=== PATIENT | female | born 1985 | race Caucasian/White ===

== ENCOUNTER 2016-11-22 20:19 | Emergency (ER) | payer OTHER ==
--- NOTE | 2016-11-22 23:17 | ED CLINICAL REPORT ---
Clinical Report - Physicians/Mid Levels [facility] [address] [place] [address] 11/22/2016 20:21 Patient: SALAS ARECHIGA Time Seen: 21:08. Arrived- By ambulance. Historian- patient and EMS personnel. HISTORY OF PRESENT ILLNESS Chief Complaint: LOWER EXTREMITY SWELLING. Severity is described as being moderate. It has become recently worse. Is still present (Pt in by EMS states that she has had numbness and tingling in R leg for a few weeks that has been getting gradually worse, with a limp .). Symptoms located in the area of the right knee. The patient has not had redness. No swelling. She has had mild difficulty walking. REVIEW OF SYSTEMS No chills, fever, sweats, calf pain or chest pain. No cough, difficulty breathing, pedal edema, palpitations or abdominal pain. No constipation, diarrhea, nausea, vomiting or urinary problems. The patient has had a mild frontal headache. She has had new onset of numbness, (Now c/o tigling on rt side of face onset at 1730 today. pt also has a slight headache "between my eyes")). All systems otherwise negative, except as recorded above. SOCIAL HISTORY Never smoker. Occasional alcohol use. No drug use. FAMILY HISTORY Denies family medical history. ADDITIONAL NOTES The nursing notes have been reviewed. PHYSICAL EXAM Vital Signs: 11/22/2016 20:20 BP: 109/72. HR: 86. RR: 18. O2 saturation: 100%. Temp: 98.2 F. Appearance: Alert. Eyes: Pupils equal, round and reactive to light. ENT: Pharynx normal. Neck: Normal inspection. Neck supple. CVS: Normal heart rate and rhythm. Heart sounds normal. Respiratory: No respiratory distress. Breath sounds normal. Abdomen: Soft and nontender. No organomegaly. Back: Normal inspection. Skin: Skin warm and dry. Normal skin color. Normal skin turgor. Extremities: Right knee: mild tenderness located in the patella and posterior knee. Neurovascular intact distally. (positive patellar apprehension sign). No ligamentous laxity present. No joint effusion. Lower extremities exhibit normal ROM. No signs of infection involving the lower extremities. No lower extremity edema. No calf tenderness. LABS, X-RAYS, AND EKG X-Rays: Right knee negative. The X-rays were independently viewed by me. PROGRESS AND PROCEDURES Patient/family counseled. Old medical records reviewed. Disposition: Discharged. Condition: stable. CLINICAL IMPRESSION Acute right knee pain. Paresthesia Patellofemoral syndrome of the right knee. INSTRUCTIONS Apply ice for 20 minutes four times a day until better. Don't apply ice directly to skin and don't use while asleep. Warnings: Further evaluation is necessary. GENERAL WARNINGS: Return or contact your physician immediately if your condition worsens or changes unexpectedly, if not improving as expected, or if other problems arise. Prescription Medications: Ibuprofen 600mg tablets: take 1 tablet orally every 8 hours as needed for pain. Dispense thirty (30). No refills. Follow-up: Follow up with your doctor in seven days. Call for an appointment. Follow up with an orthopedic surgeon- as recommended by your primary care physician. Understanding of the discharge instructions verbalized by patient. (Electronically signed by All Garcia MD 11/25/2016 0:32)
--- NOTE | 2016-11-22 23:17 | ED NURSING NOTES ---
Clinical Report - Nurses [facility] [address] [place] [address] 11/22/2016 20:21 Patient: SALAS ARECHIGA TRIAGE Triage time 2019. Acuity: LEVEL 3. Chief Complaint: (Pt in by EMS states that she has had numbenss and tingling in rt leg for a few weeks that has been getting gradually worse, with a limp . Now c/o tigling on rt side of face onset at 1730 today. pt also has a slight headache "between my eyes"). 20:20. JOE COMA SCORE: [place] Coma Scale: 15- eyes open spontaneously (4); best verbal response- oriented x 4 (5); best motor response- obeys commands (6). --20:31 Lorrie Farrell R.N. 20:20 11/22/16. BP: 109/72. HR: 86. RR: 18. O2 saturation: 100%. Temp: 98.2 F. Pain level now 3/10. --20:31 Lorrie Farrell R.N. Weight: 54.4 kg stated. Height/Length: 65 inches Per Patient. BMI: 20. --20:28 Lorrie Farrell R.N. Medications None. --20:26 Lorrie Farrell R.N. Allergies Benadryl.(hives) (hallucinations) Celexa. (hallucinations ) Paxil. (hallucinations) --20:26 Lorrie Farrell R.N. History Arrived by EMS. Historian: patient. Unaccompanied. No primary care physician. ( speech is clear, pt is A&Ox4, studio manager are equal, no arm drift noted,). PAST MEDICAL HX: Last normal menstrual period- today. SOCIAL HX: Never smoker. Occasional alcohol use. No drug use. --20:31 Lorrie Farrell R.N. PROBLEMS: Exercise-induced asthma. Depression. Irregular heart beat . Dysfunctional Uterine Bleeding. Dysmenorrhea. OB History. Ovarian Cyst. --20:28 Lorrie Farrell R.N. ADDITIONAL SURGERIES: Dental Surgery. --20:28 Lorrie Farrell R.N. Interventions ID band on patient. To treatment room. --20:31 Lorrie Farrell R.N. PHYSICAL ASSESSMENT 20:20. To room via stretcher. Patient gowned. GENERAL / NEURO / PSYCH: Awake. Oriented X 4. Alert. Speech normal. No sensory deficit. HEENT: No facial asymmetry noted. RESPIRATORY: Respirations not labored. CVS: Capillary refill less than 2 seconds. SKIN: ( pt also c/o pain to rt kneecap area, states it had been in the calf for the last 2 weeks and moved to the kneecap last 2 days -). --20:33 Lorrie Farrell R.N. NURSING PROGRESS NOTES 20:20. Monitoring of patient in place. Patient gowned. Head of bed elevated. Reassurance given. Patient identifiers checked. Call light placed in reach. Side rails up. Bed placed in lowest position. Patient ready for evaluation- chart flagged. --20:31 Lorrie Farrell R.N. 20:51 11/22/16. BP: 102/66. HR: 77. RR: 16. O2 saturation: 100%. Temp: deferred. Pain level now: 12/11. Additional comments: placed on residential monitor, NSR noted . --20:53 Lorrie Farrell R.N. Urine test negative. fire control assistant check passed. --21:54 Nile Gerber, ER Carton Making Machinist 22:30 11/22/16. Care transferred and report given (West Vergara, EDRN). --22:30 Lorrie Farrell R.N. DISPOSITION / DISCHARGE 23:25 11/22/16. Condition at departure: stable. The goals identified in the patient's plan of care were met. JOE COMA SCORE: [place] Coma Scale: 15- eyes open spontaneously (4); best verbal response- oriented x 4 (5); best motor response- obeys commands (6). --23:25 Maurilio Stubbs R.N. 23:24 11/22/16. BP: 113/67 (regular adult cuff) taken on the left arm, via an automated monitor, while lying. HR: 71 (normal rate). RR: 14 (regular, unlabored and normal). O2 saturation: 99% on room air. Temp: 98.3 F (oral). Pain level now: 04/12. --23:25 Maurilio Stubbs R.N. Departure time: 5. No learning barriers present. Discharge instructions provided and reviewed with the patient. Reviewed warnings. Reviewed medication(s). Treatments reviewed. Reviewed referrals. Patient verbalized understanding. Written instructions provided in Mauritian. The patient was discharged by the physician. She was discharged home and accompanied by family. She left the Emergency Department ambulatory and via private vehicle. Family member driving. --23:27 West Kunz R.N. Locked/Released at 11/24/2016 14:05 by West Kunz R.N.
--- NOTE | 2016-11-22 23:17 | ED ORDER SUMMARY ---
..... Patient: SALAS ARECHIGA OrderSheet [facility] VisitID: [id number] [address] [place] [address] 31y, F Registration Date/Time: 11/22/2016 ORDER SHEET Weight: 54.4 kg (stated) Allergies: Benadryl, Celexa, Paxil GENERAL ORDERS: POC - Urine hCG (21:25 11/22/2016 Eva BLOOD) (Ack 21:27 DDean R.N.) (22:11 DDean R.N.) Knee 4V Right Urgent (22:39 11/22/2016 Eva BLOOD) (Ack 22:47 [facility] Executive Secretary) MEDICATION ORDERS: IV FLUIDS: ORDER SHEET NOTES: [Electronically signed by West Kunz R.N. (14:05 11/24/2016)] [Electronically signed by All Garcia MD (00:32 11/25/2016)] [Electronically locked/signed by West Kunz R.N. (14:05 11/24/2016)]
--- NOTE | 2016-11-22 23:17 | ED ORDER SUMMARY ---
..... Patient: SALAS ARECHIGA OrderSheet [facility] VisitID: [id number] [address] [place] [address] 31y, F Registration Date/Time: 11/22/2016 ORDER SHEET Weight: 54.4 kg (stated) Allergies: Benadryl, Celexa, Paxil GENERAL ORDERS: POC - Urine hCG (21:25 11/22/2016 Eva BLOOD) (Ack 21:27 DDean R.N.) (22:11 DDean R.N.) Knee 4V Right Urgent (22:39 11/22/2016 Eva BLOOD) (Ack 22:47 [facility] Mud Boss) MEDICATION ORDERS: IV FLUIDS: ORDER SHEET NOTES: [Electronically signed by West Kunz R.N. (14:05 11/24/2016)] [Electronically signed by All Garcia MD (00:32 11/25/2016)] [Electronically locked/signed by West Kunz R.N. (14:05 11/24/2016)]
--- NOTE | 2016-11-22 23:17 | ED NURSING NOTES ---
Clinical Report - Nurses [facility] [address] [place] [address] 11/22/2016 20:21 Patient: SALAS ARECHIGA TRIAGE Triage time 2019. Acuity: LEVEL 3. Chief Complaint: (Pt in by EMS states that she has had numbenss and tingling in rt leg for a few weeks that has been getting gradually worse, with a limp . Now c/o tigling on rt side of face onset at 1730 today. pt also has a slight headache "between my eyes"). 20:20. JOE COMA SCORE: [place] Coma Scale: 15- eyes open spontaneously (4); best verbal response- oriented x 4 (5); best motor response- obeys commands (6). --20:31 Lorrie Farrell R.N. 20:20 11/22/16. BP: 109/72. HR: 86. RR: 18. O2 saturation: 100%. Temp: 98.2 F. Pain level now 3/10. --20:31 Lorrie Farrell R.N. Weight: 54.4 kg stated. Height/Length: 65 inches Per Patient. BMI: 20. --20:28 Lorrie Farrell R.N. Medications None. --20:26 Lorrie Farrell R.N. Allergies Benadryl.(hives) (hallucinations) Celexa. (hallucinations ) Paxil. (hallucinations) --20:26 Lorrie Farrell R.N. History Arrived by EMS. Historian: patient. Unaccompanied. No primary care physician. ( speech is clear, pt is A&Ox4, filenet admin are equal, no arm drift noted,). PAST MEDICAL HX: Last normal menstrual period- today. SOCIAL HX: Never smoker. Occasional alcohol use. No drug use. --20:31 Lorrie Farrell R.N. PROBLEMS: Exercise-induced asthma. Depression. Irregular heart beat . Dysfunctional Uterine Bleeding. Dysmenorrhea. OB History. Ovarian Cyst. --20:28 Lorrie Farrell R.N. ADDITIONAL SURGERIES: Dental Surgery. --20:28 Lorrie Farrell R.N. Interventions ID band on patient. To treatment room. --20:31 Lorrie Farrell R.N. PHYSICAL ASSESSMENT 20:20. To room via stretcher. Patient gowned. GENERAL / NEURO / PSYCH: Awake. Oriented X 4. Alert. Speech normal. No sensory deficit. HEENT: No facial asymmetry noted. RESPIRATORY: Respirations not labored. CVS: Capillary refill less than 2 seconds. SKIN: ( pt also c/o pain to rt kneecap area, states it had been in the calf for the last 2 weeks and moved to the kneecap last 2 days -). --20:33 Lorrie Farrell R.N. NURSING PROGRESS NOTES 20:20. Monitoring of patient in place. Patient gowned. Head of bed elevated. Reassurance given. Patient identifiers checked. Call light placed in reach. Side rails up. Bed placed in lowest position. Patient ready for evaluation- chart flagged. --20:31 Lorrie Farrell R.N. 20:51 11/22/16. BP: 102/66. HR: 77. RR: 16. O2 saturation: 100%. Temp: deferred. Pain level now: 12/11. Additional comments: placed on director medical affairs, NSR noted . --20:53 Lorrie Farrell R.N. Urine test negative. security control room officer check passed. --21:54 Nile Gerber, ER Timing Adjuster 22:30 11/22/16. Care transferred and report given (West Vergara, EDRN). --22:30 Lorrie Farrell R.N. DISPOSITION / DISCHARGE 23:25 11/22/16. Condition at departure: stable. The goals identified in the patient's plan of care were met. JOE COMA SCORE: [place] Coma Scale: 15- eyes open spontaneously (4); best verbal response- oriented x 4 (5); best motor response- obeys commands (6). --23:25 Maurilio Stubbs R.N. 23:24 11/22/16. BP: 113/67 (regular adult cuff) taken on the left arm, via an automated monitor, while lying. HR: 71 (normal rate). RR: 14 (regular, unlabored and normal). O2 saturation: 99% on room air. Temp: 98.3 F (oral). Pain level now: 04/12. --23:25 Maurilio Stubbs R.N. Departure time: 5. No learning barriers present. Discharge instructions provided and reviewed with the patient. Reviewed warnings. Reviewed medication(s). Treatments reviewed. Reviewed referrals. Patient verbalized understanding. Written instructions provided in Burmese. The patient was discharged by the physician. She was discharged home and accompanied by family. She left the Emergency Department ambulatory and via private vehicle. Family member driving. --23:27 West Kunz R.N. Locked/Released at 11/24/2016 14:05 by West Kunz R.N.
--- NOTE | 2016-11-23 05:20 | DIAGNOSTIC IMAGING REPORT ---
PROCEDURE: XR KNEE 4 VIEWS - RIGHT INDICATION: PAIN IN JOINT TECHNIQUE: Four views. COMPARISON: None. FINDINGS: Osseous structures and joint spaces are normal. IMPRESSION: 1. Normal right knee.
--- NOTE | 2016-11-25 00:32 | ED MED RECONCILIATION SUMMARY ---
Patient: SALAS ARECHIGA Medication Reconciliation Report [facility] VisitID: [id number] [address] [place] [address] 31y, F Registration Date/Time: 11/22/2016 Weight: 54.4 kg Height/Length: 65 in. BMI: 20.0 ALLERGIES: Benadryl, Celexa, Paxil The patient's Home Medications are listed below: NONE. The source(s) of the original Home Medication information: Not obtained. The following Medications were given to the patient in the Emergency Department: None. The following Medications were prescribed to the patient: Ibuprofen 600mg tablets: take 1 tablet orally every 8 hours as needed for pain. Dispense thirty (30). No refills. -- All Garcia MD
--- NOTE | 2016-11-25 00:32 | ED MAR SUMMARY ---
..... Medication Administration Record [facility] [address] [place] [id number] Patient: SALAS ARECHIGA Visit ID: [id number] 31y, F Weight: 54.4 kg Height/Length: 65 in BMI: 20 ALLERGIES: Benadryl, Celexa, Paxil
--- NOTE | 2016-11-25 00:32 | ED MED RECONCILIATION SUMMARY ---
Patient: SALAS ARECHIGA Medication Reconciliation Report [facility] VisitID: [id number] [address] [place] [address] 31y, F Registration Date/Time: 11/22/2016 Weight: 54.4 kg Height/Length: 65 in. BMI: 20.0 ALLERGIES: Benadryl, Celexa, Paxil The patient's Home Medications are listed below: NONE. The source(s) of the original Home Medication information: Not obtained. The following Medications were given to the patient in the Emergency Department: None. The following Medications were prescribed to the patient: Ibuprofen 600mg tablets: take 1 tablet orally every 8 hours as needed for pain. Dispense thirty (30). No refills. -- All Garcia MD
--- NOTE | 2016-11-25 00:32 | ED MAR SUMMARY ---
..... Medication Administration Record [facility] [address] [place] [id number] Patient: SALAS ARECHIGA Visit ID: [id number] 31y, F Weight: 54.4 kg Height/Length: 65 in BMI: 20 ALLERGIES: Benadryl, Celexa, Paxil
--- NOTE | 2016-11-25 00:32 | ED DISCHARGE INSTRUCTIONS ---
Patient: SALAS ARECHIGA General Instructions [facility] VisitID: [id number] [place] [address] 31y, F Registration Date/Time: 11/22/2016 Acute right knee pain. Paresthesia Patellofemoral syndrome of the right knee. INSTRUCTIONS Apply ice for 20 minutes four times a day until better. Don't apply ice directly to skin and don't use while asleep. Warnings: Further evaluation is necessary. GENERAL WARNINGS: Return or contact your physician immediately if your condition worsens or changes unexpectedly, if not improving as expected, or if other problems arise. Prescription Medications: Ibuprofen 600mg tablets: take 1 tablet orally every 8 hours as needed for pain. Dispense thirty (30). No refills. Follow-up: Follow up with your doctor in seven days. Call for an appointment. Follow up with an orthopedic surgeon- as recommended by your primary care physician. Understanding of the discharge instructions verbalized by patient. ADDITIONAL INFORMATION Paraesthesias Paraesthesia refers to a burning or prickling sensation that is sometimes felt in the hands, arms, legs or feet. It can also occur in other parts of the body. It can also feel like tingling or numbness, skin crawling or itching.The sensation is usually painless. Most people have experienced pins and needles. This feeling happens when legs have been crossed for too long and pressure is placed on a nerve. This is a temporary paraesthesia. It quickly goes away once the pressure is relieved. There are many possible causes for chronic paraesthesias. These include such disorders as stroke, herniated disk (pressing on a nerve), trapped nerve in the shoulder, elbow or wrist (such as carpal tunnel syndrome), vitamin deficiencies or even certain medicines. Laboratory tests are needed to make an accurate diagnosis. These tests may include blood tests, X-ray, CT (computerized tomography) scan or a muscle test (electromyography).Depending on the cause, treatment may include physical therapy. Home Care: Do not make any changes to your medicines without advice from your doctor. If vitamins have been prescribed, remember to take them daily at the recommended dose. Because of a decrease in feeling, a numb hand or foot may be more prone to injury. Take care to protect these areas from cuts, bumps, bruises, james or other injury. Keep your nails trimmed and wash your hands and feet often. Wear shoes that fit well to avoid pressure points, blisters and ulcers. Look at your hands and feet carefully (including the soles of your feet and between your toes) at least once a week and notify your doctor of any open wounds or signs of infection. Follow Up with your doctor or as advised by our staff. You may need further testing to determine the exact cause of your paraesthesia. [NOTE: If blood tests, X-ray, CT scan or electromyography were done, specialists will review them. You will be notified of any new findings that may affect your care.] Get Prompt Medical Attention if any of the following occur: Numbness or weakness of the face, one arm or one leg Slurred speech, confusion, trouble speaking, walking or seeing Severe headache, fainting spell, dizziness or seizure Chest, arm, neck or upper back pain Loss of bladder or bowel control Open wound with redness, swelling or pus Ibuprofen Oral tablet What is this medicine? IBUPROFEN (eye BYOO proe fen) is a non-steroidal anti-inflammatory drug (NSAID). It is used for dental pain, fever, headaches or migraines, osteoarthritis, rheumatoid arthritis, or painful monthly periods. It can also relieve minor aches and pains caused by a cold, flu, or sore throat. How should I use this medicine? Take this medicine by mouth with a glass of water. Follow the directions on the prescription label. Take this medicine with food if your stomach gets upset. Try to not lie down for at least 10 minutes after you take the medicine. Take your medicine at regular intervals. Do not take your medicine more often than directed. A special MedGuide will be given to you by the pharmacist with each prescription and refill. Be sure to read this information carefully each time. Talk to your pet care technician regarding the use of this medicine in children. Special care may be needed. What side effects may I notice from receiving this medicine? Side effects that you should report to your doctor or health managed care provider as soon as possible: allergic reactions like skin rash, itching or hives, swelling of the face, lips, or tongue black or bloody stools, blood in the urine or in vomit breathing problems changes in vision chest pain general ill feeling or flu-like symptoms nausea or vomiting redness, blistering, peeling or loosening of the skin, including inside the mouth slurred speech or weakness on one side of the body stomach pain unexplained weight gain or swelling unusually weak or tired yellowing of eyes or skin Side effects that usually do not require medical attention (report to your doctor or health managed care provider if they continue or are bothersome): constipation or diarrhea dizziness gas or heartburn stomach upset What may interact with this medicine? Do not take this medicine with any of the following medications: cidofovir ketorolac methotrexate pemetrexed This medicine may also interact with the following medications: alcohol aspirin diuretics lithium other drugs for inflammation like prednisone warfarin What if I miss a dose? If you miss a dose, take it as soon as you can. If it is almost time for your next dose, take only that dose. Do not take double or extra doses. Where should I keep my medicine? Keep out of the reach of children. Store at room temperature between 15 and 30 degrees C (59 and 86 degrees F). Keep container tightly closed. Throw away any unused medicine after the expiration date. What should I tell my health care provider before I take this medicine? They need to know if you have any of these conditions: asthma cigarette smoker drink more than 3 alcohol containing drinks a day heart disease or circulation problems such as heart failure or leg edema (fluid retention) high blood pressure kidney disease liver disease stomach bleeding or ulcers an unusual or allergic reaction to ibuprofen, aspirin, other NSAIDS, other medicines, foods, dyes, or preservatives or trying to get breast-feeding What should I watch for while using this medicine? Tell your doctor or healthcare professional if your symptoms do not start to get better or if they get worse. This medicine does not prevent heart attack or stroke. In fact, this medicine may increase the chance of a heart attack or stroke. The chance may increase with longer use of this medicine and in people who have heart disease. If you take aspirin to prevent heart attack or stroke, talk with your doctor or health managed care provider. Do not take other medicines that contain aspirin, ibuprofen, or naproxen with this medicine. Side effects such as stomach upset, nausea, or ulcers may be more likely to occur. Many medicines available without a prescription should not be taken with this medicine. This medicine can cause ulcers and bleeding in the stomach and intestines at any time during treatment. Ulcers and bleeding can happen without warning symptoms and can cause . To reduce your risk, do not smoke cigarettes or drink alcohol while you are taking this medicine. You may get drowsy or dizzy. Do not drive, use machinery, or do anything that needs mental alertness until you know how this medicine affects you. Do not stand or sit up quickly, especially if you are an older patient. This reduces the risk of dizzy or fainting spells. This medicine can cause you to bleed more easily. Try to avoid damage to your teeth and gums when you brush or floss your teeth. You have been given the following additional information: Paraesthesias Ibuprofen Oral tablet (Electronically signed by All Garcia MD 11/25/2016 0:32)
== END 2016-11-22 23:25 | disposition home or self-care (01) ==
LOC: ED SRH 20:19
DX: M25.561 Pain in right knee (principal); R20.9 Unspecified disturbances of skin sensation; M22.2X1 Patellofemoral disorders, right knee